=== PATIENT | female | born 1995 | race Two or more races ===

== ENCOUNTER 2023-09-27 19:13 | Emergency (ER) | payer BC, OTHER ==
[~2023-09-27] VITALS: Ht 160 cm; Wt 150.0 kg
[2023-09-27 21:08] VITALS: BP 139/85; PULSE 99; RESP 16; TEMP 97.8; O2SAT 100
[2023-09-27] MEDS ORDERED: IBUP1TAB5 PO (22:23)
[2023-09-27] MEDS: HYDROcodone-ACET 5/325MG TAB PO ONE (22:28)
== END 2023-09-27 22:20 | disposition home or self-care (01) ==
LOC: ER 19:13
DX: S52.591A Other fractures of lower end of right radius, initial encounter for closed fracture (principal); S63.014A Dislocation of distal radioulnar joint of right wrist, initial encounter; V49.49XA Driver injured in collision with other motor vehicles in traffic accident, initial encounter; Y93.I9 Activity, other involving external motion; Y92.89 Other specified places as the place of occurrence of the external cause; Y99.8 Other external cause status
CPT/HCPCS: 29125; 73090; 73130